=== PATIENT | female | born 1985 | race Caucasian/White ===

== ENCOUNTER 2018-07-02 10:13 | Emergency (ER) | payer OTHER ==
[2018-07-02 10:13] VITALS: BMI 29.9
[2018-07-02 10:24] VITALS: O2SAT 99
--- NOTE | 2018-07-02 10:55 | ED PDOC ---
Arrival/HPI - General Chief Complaint: Cough, Cold, Congestion Time Seen by Provider: 07/02/18 10:26 Historian: Patient - History of Present Illness Narrative History of Present Illness (Text): 07/02/18 10:52 32yo female who present with complaint of nonproductive cough, nasal congestion , and subjective fever x 5days. States she used Nquil without relieve. Denies sore throat, ear pain, sick contact, travel, any other complaint. Past Medical History - Provider Review Nursing Documentation Reviewed: Yes - Infectious Disease Hx of Infectious Diseases: None - Tetanus Immunization Tetanus Immunization: Unknown - Past Medical History Past Medical History: No Previous - Cardiac Hx Cardiac Disorders: No - Pulmonary Hx Respiratory Disorders: No - Neurological Hx Neurological Disorder: No - HEENT Hx HEENT Disorder: Yes (fluid right ear pe tube insertion) - Renal Hx Renal Disorder: No - Endocrine/Metabolic Hx Endocrine Disorders: No - Hematological/Oncological Hx Blood Disorders: No - Integumentary Hx Dermatological Disorder: No - Musculoskeletal/Rheumatological Hx Musculoskeletal Disorders: Yes Hx Fractures: Yes (right ankle) - Gastrointestinal Hx Gastrointestinal Disorders: No - Genitourinary/Gynecological Hx Genitourinary Disorders: No Hx Reproductive Disorders: Yes Other/Comment: OVARIAN CYST - Psychiatric Hx Psychophysiologic Disorder: No Hx Substance Use: No - Past Surgical History Past Surgical History: No Previous - Surgical History Hx Open Reduction Internal Fixation: Yes (right ankle) Other/Comment: right ear pe tube insertion. Cyst removeal from overies - Anesthesia Hx Anesthesia: Yes Hx Anesthesia Reactions: No Hx Malignant Hyperthermia: No - Suicidal Assessment Feels Threatened In Home Enviroment: No Family/Social History - Physician Review Nursing Documentation Reviewed: Yes Family/Social History: Unknown Family HX Smoking Status: Never Smoked Hx Alcohol Use: No Hx Substance Use: No Hx Substance Use Treatment: No Allergies/Home Meds Allergies/Adverse Reactions: Allergies acetaminophen [From Vicodin] Allergy (Verified 07/02/18 10:23) SWELLING hydrocodone [From Vicodin] Allergy (Verified 07/02/18 10:23) SWELLING iodine Allergy (Verified 07/02/18 10:23) SWELLING oxycodone Allergy (Verified 07/02/18 10:23) SWELLING shellfish derived Allergy (Verified 07/02/18 10:23) SWELLING Review of Systems - Physician Review All systems were reviewed & negative as marked: Yes - Review of Systems Constitutional: Normal Eyes: Normal ENT: Sinus Congestion Respiratory: Cough Cardiovascular: Normal Gastrointestinal: Normal Genitourinary Female: Normal Musculoskeletal: Normal Skin: Normal Neurological: Normal Endocrine: Normal Hemo/Lymphatic: Normal Psychiatric: Normal Physical Exam Vital Signs Reviewed: Yes Vital Signs Temp Pulse Resp BP Pulse Ox 07/02/18 12:26 98 F 07/02/18 12:23 98 F 75 19 123/75 99 07/02/18 10:20 98.6 F 88 18 118/76 99 Temperature: Afebrile Blood Pressure: Normal Pulse: Regular Respiratory Rate: Normal Appearance: Positive for: Well-Appearing, Non-Toxic, Comfortable Pain Distress: None Mental Status: Positive for: Alert and Oriented X 3 - Systems Exam Head: Present: Atraumatic, Normocephalic Pupils: Present: PERRL Extroacular Muscles: Present: EOMI Conjunctiva: Present: Normal Mouth: Present: Moist Mucous Membranes Nose (Internal): Present: Engorged (B/L nares), Other (Tenderness over the maxillary and frontal sinuses) Neck: Present: Normal Range of Motion Respiratory/Chest: Present: Clear to Auscultation, Good Air Exchange. No: Respiratory Distress, Accessory Muscle Use, Wheezes, Decreased Breath Sounds, Rales, Retracting, Rhonchi Cardiovascular: Present: Regular Rate and Rhythm, Normal S1, S2. No: Murmurs Abdomen: No: Tenderness, Distention, Peritoneal Signs Back: Present: Normal Inspection Upper Extremity: Present: Normal Inspection. No: Cyanosis, Edema Lower Extremity: Present: Normal Inspection. No: Edema Neurological: Present: GCS=15, CN II-XII Intact, Speech Normal Skin: Present: Warm, Dry, Normal Color. No: Rashes Psychiatric: Present: Alert, Oriented x 3, Normal Insight, Normal Concentration Medical Decision Making ED Course and Treatment: 07/02/18 19:29 pt presented for stated history. she was afebrile in ED. She had tenderness over her sinuses. Chest xray IMPRESSION: No focal consolidation, significant pleural effusion, or definite pneumothorax identified. she was placed on Augmentin for sinusitis. Result was DW the pt and she was referred to her PMD. - RAD Interpretation Radiology Orders: 07/02/18 10:52 CHEST TWO VIEWS (PA/LAT) [RAD] Stat - Medication Orders Current Medication Orders: Discontinued Medications Amoxicillin/Clavulanate Potassium (Augmentin 875 Mg-125 Mg Tab) 1 tab PO STAT STA PRN Reason: Protocol Stop: 07/02/18 11:36 Last Admin: 07/02/18 12:05 Dose: 1 tab Benzonatate (Tessalon Perles) 100 mg PO ONCE STA Stop: 07/02/18 11:36 Last Admin: 07/02/18 12:04 Dose: 100 mg Prednisone (Prednisone Tab) 40 mg PO STAT STA Stop: 07/02/18 11:37 Last Admin: 07/02/18 12:04 Dose: 40 mg Disposition/Present on Arrival - Present on Arrival Any Indicators Present on Arrival: No History of DVT/PE: No History of Uncontrolled Diabetes: No Urinary Catheter: No History of Decub. Ulcer: No History Surgical Site Infection Following: None - Disposition Have Diagnosis and Disposition been Completed?: Yes Diagnosis: Acute sinusitis, Cough Disposition: HOME/ ROUTINE Disposition Time: 11:40 Patient Plan: Discharge Condition: STABLE Discharge Instructions (ExitCare): Sinusitis in Adults, Cough in Adults Additional Instructions: Follow up with your doctor Return to ED for any new or worsening symptoms Prescriptions: Amoxicillin/Clavulanate [Augmentin 875 MG-125 MG] 1 tab PO BID #20 tab Benzonatate [Tessalon Perle] 100 mg PO TID #20 capsule Referrals: Flor Diaz MD [Medical Doctor] - Follow up with primary [facility] [place] - Follow up with primary [facility] [Outside] - Follow up with primary Forms: [employer] (Azeri)
--- NOTE | 2018-07-02 11:33 | RAD ---
HISTORY: cough COMPARISON: None available. TECHNIQUE: Chest PA and lateral FINDINGS: LUNGS: No focal consolidation. Please note that chest x-ray has limited sensitivity for the detection of pulmonary masses. PLEURA: No significant pleural effusion identified. No definite pneumothorax . CARDIOVASCULAR: The cardiomediastinal silhouette appears within normal limits of size. OSSEOUS STRUCTURES: No acute osseous abnormality identified. VISUALIZED UPPER ABDOMEN: Unremarkable. OTHER FINDINGS: None. IMPRESSION: No focal consolidation, significant pleural effusion, or definite pneumothorax identified.
[2018-07-02] MEDS ORDERED: Amoxicillin-Clav 875-125 mg Tab PO STA (11:35)
[2018-07-02 12:24] VITALS: BP 123/75; PULSE 75; RESP 19; TEMP 98
== END 2018-07-02 12:26 | disposition home or self-care (01) ==
LOC: ED 10:13
DX: J01.90 Acute sinusitis, unspecified (principal); R05 Cough